=== PATIENT | female | born 1990 | race Caucasian/White ===

== ENCOUNTER 2019-08-03 10:41 | Outpatient (CLI) | payer OTHER | END 2019-08-03 10:51 | disposition home or self-care (01) | LOC: LAB 10:41 | DX: J11.1 Influenza due to unidentified influenza virus with other respiratory manifestations (principal); J06.9 Acute upper respiratory infection, unspecified ==

== ENCOUNTER 2020-11-18 07:45 | Outpatient (CLI) | payer OTHER | END 2020-11-18 07:53 | disposition home or self-care (01) | LOC: RAD 07:45 → MRI 07:45 → RAD 07:53 | DX: Z01.89 Encounter for other specified special examinations (principal) ==

== ENCOUNTER 2021-12-01 14:22 | Outpatient (CLI) | payer OTHER | END 2021-12-01 14:36 | disposition home or self-care (01) | LOC: MRI 14:22 | PROVIDERS: ATTEND General Practice | DX: G40.89 Other seizures (principal); G43.119 Migraine with aura, intractable, without status migrainosus; E22.1 Hyperprolactinemia; I47.9 Paroxysmal tachycardia, unspecified | CPT/HCPCS: 70553 ==